=== PATIENT | female | born 1995 | race Caucasian/White ===

== ENCOUNTER → 2016-08-12 | Outpatient (CLI) | payer BC ==
[~2016-08-12] MED LIST: ACET325T96 PO; DOXY30TA PO; ONDA4TAB46 PO; PRENTAB26 PO
== END | disposition home or self-care (01) ==
LOC: C.LAB 17:05
PROVIDERS: ATTEND Obstetrics & Gynecology
DX: O46.90 Antepartum hemorrhage, unspecified, unspecified trimester (principal)

== ENCOUNTER → 2016-08-13 | Day surgery (SDC) | payer BC ==
[~2016-08-13] VITALS: Ht 170.2 cm; Wt 98.5 kg
[2016-08-13 16:09] VITALS: BP 122/75; PULSE 109; TEMP 36.7; O2SAT 98; Ht 170.2 cm; Wt 98.5 kg
== END | disposition home or self-care (01) ==
LOC: C.MTU 16:00
PROVIDERS: ATTEND Obstetrics & Gynecology
DX: Z31.82 Encounter for Rh incompatibility status (principal)

== ENCOUNTER → 2016-09-30 | Outpatient (CLI) | payer BC ==
[~2016-09-30] MED LIST changes: -DOXY30TA PO; -PRENTAB26 PO
== END | disposition home or self-care (01) ==
LOC: C.LABSPEC 14:49
PROVIDERS: ATTEND Obstetrics & Gynecology
DX: Z34.03 Encounter for supervision of normal first pregnancy, third trimester (principal)

== ENCOUNTER 2016-10-11 08:57 | Inpatient (IN) | payer BC ==
[~2016-10-11] VITALS: Ht 167.6 cm; Wt 102.0 kg
[2016-10-11] MEDS ORDERED: IV FLUIDS COMPLETED PRN (10:45)
[2016-10-11] MEDS ORDERED: LACTATED RINGER'S 1000ML 500 ML IV PRN ×2 (15:53→20:14)
[2016-10-11] MEDS ORDERED: OXYTOCIN 30 UNITS/500ML NSS IV PRN ×2 (16:00→22:45)
[2016-10-11] MEDS ORDERED: LACTATED RINGER'S 1000ML 1,000 ML IV PRN (16:54)
[2016-10-11] MEDS ORDERED: LACTATED RINGER'S 1000ML 1,000 ML IV SCH (16:54)
[2016-10-11 17:15] LABS: HEMATOCRIT 32.8 % (37-47); MEAN CELL VOLUME 80.6 fL (80-100); MEAN CORPUSCULAR HEMOGLOBIN 26.3 pg (25-34); MEAN CORPUSCULAR HGB CONC 32.6 g/dl (32-36); MEAN PLATELET VOLUME 10.2 fL (7.4-10.4); PLATELET COUNT 352 K/uL (130-400); RED BLOOD COUNT 4.07 M/uL (4.2-5.4); WHITE BLOOD COUNT 17.63 K/uL (4.8-10.8)
[2016-10-11 17:28] VITALS: Ht 167.6 cm; Wt 102.0 kg
[2016-10-11] MEDS ORDERED: BUPIVACAINE 0.25% 30 ML VIAL ONE (19:25)
[2016-10-11] MEDS ORDERED: EpHEDrine SULFATE INJ 50 MG/ML AMP ONE (19:25)
[2016-10-11] MEDS ORDERED: FENTANYL 2MCG/ML ROPIV 1.25MG/ML 100ML BAG EPI ONE (19:26)
[2016-10-11] MEDS ORDERED: FENTANYL CITRATE INJ 50 MCG/1 ML 2 ML VIAL ONE (19:26)
[2016-10-11] MEDS ORDERED: NALOXONE HCL INJ 1 MG in SODIUM CHLORIDE 0.9% 1000ML 1,000 ML IV PRN ×4 (20:14)
[2016-10-11] MEDS ORDERED: NALOXONE HCL INJ 0.4 MG/1 ML VIAL/CARP IV PRN (20:15)
[2016-10-11] MEDS ORDERED: ONDANSETRON INJ 2 MG/ML 2 ML VIAL IV PRN (20:15)
[2016-10-11] MEDS ORDERED: PROMETHAZINE HCL INJ 25 MG in SODIUM CHLORIDE 0.9% 50ML 50 ML IV PRN (20:15)
[2016-10-11] MEDS ORDERED: DiphenhydrAMINE HCL 50 MG/ML VIAL IV PRN (20:15)
[2016-10-11] MEDS ORDERED: NALBUPHINE HCL INJ 10 MG/ML AMP IV PRN (20:15)
[2016-10-11] MEDS ORDERED: EpHEDrine SULFATE INJ 50 MG/ML AMP IV PRN (20:15)
[2016-10-11] MEDS ORDERED: FENTANYL 2MCG/ML ROPIV 1.25MG/ML 100ML BAG EPI PRN (20:15)
[2016-10-11] MEDS ORDERED: ACETAMINOPHEN/CODEINE 300/30MG TAB PO PRN ×2 (22:45)
[2016-10-11] MEDS ORDERED: DIPHTHERIA/TETANUS/PERTUSSIS 0.5 ML SYR/VIAL IM. ONE (22:45)
[2016-10-11] MEDS ORDERED: OXYCODONE/ACETAMINOPHEN 5-325 TAB PO PRN (22:45)
[2016-10-11] MEDS ORDERED: ACETAMINOPHEN 325 MG TAB PO PRN (22:45)
[2016-10-11] MEDS ORDERED: BENZOCAINE 20% AER SPR 82.5 GM CAN EXT PRN (22:45)
[2016-10-11] MEDS ORDERED: SUPERCREAM 0.870 % 15GM JAR EXT PRN (22:45)
[2016-10-11] MEDS ORDERED: HYDROCORTISONE ACETATE 25 MG SUPP PR PRN (22:45)
[2016-10-11] MEDS ORDERED: LANOLIN OINT EXT PRN ×2 (22:45)
--- NOTE | 2016-10-11 23:06 | DELIVERY SUMMARY ---
DATE OF OPERATION: 10/11/2016 Ching is 1, para 0. Her course was complicated early on with hyperemesis gravidarum, hospitalized numerous times for IV fluid replacement, and she is treated with Zofran and diclegis Blood type is B negative. Rubella immune. Vaginal beta strep negative. She came in in labor, tino every 4-5 minutes, and cervix was about 4-5 on admission. She was observed. Cervix went to 6. She was declared as being in labor. She was augmented with IV Pitocin. Membranes ruptured surgically. She was about 7 cm. She requested and received epidural anesthesia. She obtained good pain relief. Following this, she was augmented with IV Pitocin, went to full dilatation, pushed out a live male infant via direct occiput anterior position over an intact perineum. Infant was suctioned through the mouth and the nose. Cord was clamped, cut by the father. Cord blood was taken with IV Pitocin running. Placenta was removed intact. The perineum was intact; however, she had 2 periurethral lacerations of labia minora. Both of these were infiltrated with local and sewn with continuous 3-0 chromic. Following this, vag examination was normal. There were no sponges in the vagina. Catheter was used to empty the bladder. Estimated blood loss was about 200 mL. 1- and 5-minute Apgars were 8 and 9 respectively. I attest to the content of the Intraoperative Record and any orders documented therein. Any exceptions are noted below. [facility]
--- NOTE | 2016-10-12 01:06 | Anesthesia Procedure Note ---
Anesthesia Epidural Removal Nt Date & Time Oct 12, 2016 at 01:06 Vital Signs Pain Intensity: 0.0 Notes Mental Status: alert / awake / arousable, participated in evaluation Nausea / Vomiting: adequately controlled Pain: adequately controlled Airway Patency, RR, SpO2: stable & adequate BP & HR: stable & adequate Hydration State: stable & adequate Neuraxial Anesthesia: was administered Anesthetic Complications: no major complications apparent, pt satisfied with anesthetic care Epidural: removed without complications, with tip intact
[2016-10-12 01:40] VITALS: BP_SYST 108; BP_SYST 109; BP_DIAS 63; BP_DIAS 70; PULSE 118; PULSE 98; TEMP 36.6; TEMP 36.7
[2016-10-12] MEDS: IBUPROFEN 600 MG TAB PO PRN ×3 (01:46→21:31)
[2016-10-12 05:15] VITALS: BP 108/70; PULSE 98; TEMP 36.7
[2016-10-12 05:46] LABS: HEMATOCRIT 27.6 % (37-47)
[2016-10-12] MEDS: FERROUS SULFATE 325 MG TAB PO SCH (07:25)
[2016-10-12] MEDS: PRENATAL VITAMIN TAB PO SCH (07:25)
[2016-10-12] MEDS: DOCUSATE SODIUM 100 MG CAP PO SCH ×2 (07:25→21:15)
[2016-10-12 08:00] VITALS: BP 112/66; PULSE 97; TEMP 37.2; O2SAT 99
[2016-10-12 11:30] VITALS: BP 112/65; PULSE 98; TEMP 36.7; O2SAT 98
--- NOTE | 2016-10-12 11:39 | Progress Note ---
Subjective Oct 12, 2016. Subjective conversation w/ patient Ambulation: ambulating normally Voiding: no voiding problems Passing Gas: Yes Diet Tolerance: Regular Diet Lochia: Small Feeding Type: Breast Feeding Review of Systems Constitutional: + fever Objective Vital Signs Date Time Temp Pulse Resp B/P Pulse Ox O2 Delivery O2 Flow Rate FiO2 10/12/16 08:00 Room Air 10/12/16 08:00 37.2 97 19 112/66 99 Room Air 10/12/16 05:15 36.7 98 18 108/70 Room Air 10/12/16 01:40 Room Air 10/12/16 01:40 36.6 118 20 109/63 Room Air Physical Exam General Appearance: WELL-APPEARING Abdomen: non tender Fundus: Firm, Non-Tender Extremities: no pedal edema, no calf tenderness Laboratory Results Last 24 Hours Test 10/11/16 17:06 10/12/16 05:10 White Blood Count 17.63 K/uL Red Blood Count 4.07 M/uL Hemoglobin 10.7 g/dL 9.2 g/dL Hematocrit 32.8 % 27.6 % Mean Corpuscular Volume 80.6 fL Mean Corpuscular Hemoglobin 26.3 pg Mean Corpuscular Hemoglobin Concent 32.6 g/dl RDW Standard Deviation 40.3 fL RDW Coefficient of Variation 13.9 % Platelet Count 352 K/uL Mean Platelet Volume 10.2 fL Nucleated RBC Absolute Count (auto) 0.02 K/uL Nucleated Red Blood Cells % 0.1 % Assessment and Plan Problem List Medical Problems: (1) Abdominal pain Status: Acute (2) Anemia Status: Acute (3) Hypomagnesemia Status: Acute (4) Vomiting Status: Acute Post- Day#: 1
[2016-10-12 16:08] VITALS: BP 112/65; PULSE 98; TEMP 36.7; O2SAT 98
[2016-10-12] MEDS ORDERED: BISACODYL 5 MG TABEC PO SCH (20:00)
[2016-10-12 21:20] VITALS: BP 122/87; PULSE 105; TEMP 36.4
[2016-10-13 00:25] VITALS: BP 129/74; PULSE 98; TEMP 36.7
[2016-10-13] MEDS ORDERED: BISACODYL 10 MG SUPP PR PRN (07:00)
[2016-10-13 07:10] VITALS: BP 112/74; PULSE 106; TEMP 36.9; O2SAT 99
--- NOTE | 2016-10-13 07:52 | Progress Note ---
Subjective Oct 13, 2016. Subjective conversation w/ patient Ambulation: ambulating normally Voiding: no voiding problems Passing Gas: Yes Diet Tolerance: Regular Diet Lochia: Small Feeding Type: Breast Feeding Review of Systems Constitutional: + fever Objective Vital Signs Date Time Temp Pulse Resp B/P Pulse Ox O2 Delivery O2 Flow Rate FiO2 10/13/16 07:10 36.9 106 18 112/74 99 Room Air 10/13/16 00:25 36.7 98 18 129/74 Room Air 10/13/16 00:25 Room Air 10/12/16 21:20 36.4 105 20 122/87 Room Air 10/12/16 16:08 36.7 98 18 112/65 98 Room Air 10/12/16 16:08 Room Air 10/12/16 11:30 36.7 98 18 112/65 98 Room Air 10/12/16 08:00 Room Air 10/12/16 08:00 37.2 97 19 112/66 99 Room Air Physical Exam General Appearance: WELL-APPEARING Abdomen: non tender Fundus: Firm, Non-Tender Extremities: no pedal edema, no calf tenderness Assessment and Plan Problem List Medical Problems: (1) Abdominal pain Status: Acute (2) Anemia Status: Acute (3) Hypomagnesemia Status: Acute (4) Vomiting Status: Acute Post- Day#: 2
--- NOTE | 2016-10-13 07:54 | Discharge Instructions ---
Discharge Instructions Date of Service Oct 13, 2016. Admission Reason for Admission: Possible Labor Term Discharge Discharge Diagnosis / Problem: labor Discharge Goals Goal(s): Routine recovery after delivery Activity Recommendations Activity Limitations: as noted below ACTIVITY RECOMMENDATIONS: * Gradual return to full activity over the next 2-3 weeks. * No lifting - nothing heavier than baby over the next 2-3 weeks. * Do not engage in vigorous exercise, sexual activity or sports until cleared by your physician. * Do not drive or operate any motorized equipment until cleared by your physician. * You may shower/bathe daily. DIET: Resume Previous Diet If Breast-feeding: * Increase caloric intake by 500 calories, eat 3 well balanced meals, 2 high protein snacks a day and drink 6-8 8oz. glasses of fluid per day. BREAST CARE: If you are not breast feeding: * Wear a supportive bra 24 hours a day for one to two weeks. * Avoid stimulating your breasts and nipples as much as possible during the first few weeks after delivery. * When taking a shower, have the warm water hit your back, not breasts. * When your breasts feel full, apply ice packs. Usually three to four times a day helps ease the discomfort. * Take a mild pain medication (Tylenol / Motrin) when you are uncomfortable. If breast feeding: * Use breast milk to lubricate nipples. Lansinoh cream may be used for sore nipples. You do not need to remove cream prior to breast feeding. If using a different brand of cream, check the label for directions regarding removal of cream prior to nursing. * Wear a supportive bra. * If having problems with breasts or breast feeding, call a cost consultant or your health care provider. OVER THE COUNTER MEDICATION: * For discomfort or pain, you may use Acetaminophen (Tylenol), Ibuprofen (Advil ), or Naproxen (Aleve) following the package directions. * For constipation you may use Colace following the package directions. SPECIAL CARE INSTRUCTIONS: * Vaginal rest (no tampons, douching, intercourse) until after doctor 's visit. * control as discussed with doctor. * Verbalizes understanding of car seat law as reviewed with patient nursing. * Car Seat hand-out given and reviewed with patient by nursing. * Shaken baby information reviewed with patient by nursing. Call you doctor if: * Temperature greater than or equal to 100.4 degrees F or 38.0 degrees C. Take your temperature twice daily for a week. * Bleeding becomes heavier than the heaviest part of your period - saturating a sanitary pad within an hour. * Passing large clots. * Bleeding has a foul smelling odor. * Signs and symptoms of phlebitis: leg pain, warm, red or swollen area on leg. * "Baby Blues" lasting longer than two weeks. ++ If you have had a and incision has increased pain, redness, swelling, presence of any drainage, or if the incision starts to open up. If you have any questions or concerns, call your health care practitioner at [phone]. FOLLOW-UP VISIT: Please call the office at to schedule a 6 week examination. . Current Hospital Diet Patient's current hospital diet: Regular Diet Discharge Diet Recommended Diet: Regular Diet Pending Studies Studies pending at discharge: no Medical Emergencies . Who to Call and When: Medical Emergencies: If at any time you feel your situation is an emergency, please call 911 immediately. . Non-Emergent Contact Non-Emergency issues call your: Log Peeler Call Non-Emergent contact if: temperature is above 100.5 . . "Provider Documentation" section prepared by Trae Rice. VTE Core Measure Inpt VTE Proph given/why not?: Treatment not indicated
[2016-10-13] MEDS: IBUPROFEN 600 MG TAB PO PRN (08:21)
[2016-10-13] MEDS: DOCUSATE SODIUM 100 MG CAP PO SCH (08:21)
[2016-10-13] MEDS: FERROUS SULFATE 325 MG TAB PO SCH (08:21)
[2016-10-13] MEDS: PRENATAL VITAMIN TAB PO SCH (08:21)
[2016-10-13 12:45] VITALS: BP_DIAS 74; PULSE 106; TEMP 36.9
--- NOTE | 2016-10-14 07:43 | EDITING REQUIRED CODING QUERY ---
CODING QUERY To promote full compliance with coding requirements relating to patient care, provider participation is requested in all cases of customer training specialist uncertainty. Please assist us with the question(s) below: Coding Question(s): Dr. Rice, The following diagnoses are listed in the Assessment/Plan section of the progress notes. Please indicate if these were current diagnoses that were treated during this admission: (1) Abdominal pain Status: Acute ( ) present and treated during this encounter x ) not present or treated during this encounter (2) Anemia Status: Acute ( ) present and treated during this encounter ( x ) not present or treated during this encounter (3) Hypomagnesemia Status: Acute ( ) present and treated during this encounter ( x ) not present or treated during this encounter (4) Vomiting Status: Acute ( ) present and treated during this encounter (x ) not present or treated during this encounter Physician's Response(s): Thank you for your time, JOSI Dong, SCALE AGENT
== END 2016-10-13 13:46 | disposition home or self-care (01) | DRG 775 ==
LOC: C.LD 08:57 → C.OPB 08:57 → C.LD 09:32 → C.OPB 09:54 → OBSVTOIN 16:56 → C.OBG 10-12 01:44
PROVIDERS: ADMIT Obstetrics & Gynecology; ATTEND Obstetrics & Gynecology
PROC: 10E0XZZ Delivery of Products of Conception, External Approach (ICD-10-PCS; principal; 2016-10-11)
PROC: 0UQMXZZ Repair Vulva, External Approach (ICD-10-PCS; principal; 2016-10-11)
DX: O21.0 Mild hyperemesis gravidarum (principal); O71.82 Other specified trauma to perineum and vulva; O99.62 Diseases of the digestive system complicating childbirth; K21.9 Gastro-esophageal reflux disease without esophagitis; O99.214 Obesity complicating childbirth; E66.9 Obesity, unspecified; Z68.36 Body mass index [BMI] 36.0-36.9, adult; Z37.0 Single live birth; Z3A.37 37 weeks gestation of pregnancy; Z23 Encounter for immunization

== ENCOUNTER → 2016-11-22 | Outpatient (CLI) | payer BC | END | disposition home or self-care (01) | LOC: C.PAPS 16:14 | PROVIDERS: ATTEND Obstetrics & Gynecology | DX: Z39.2 Encounter for routine postpartum follow-up (principal); R87.616 Satisfactory cervical smear but lacking transformation zone ==

== ENCOUNTER 2017-05-17 08:10 | Emergency (ER) | payer BC ==
[~2017-05-17] VITALS: Ht 170.2 cm; Wt 79.2 kg
[2017-05-17 08:20] VITALS: BP 130/80; TEMP 36.6; Ht 170.2 cm; Wt 79.2 kg
--- NOTE | 2017-05-17 08:34 | EMERGENCY ROOM VISIT NOTE ---
ED Visit Note First contact with patient: 08:26 CHIEF COMPLAINT: Left upper arm pain HISTORY OF PRESENT ILLNESS: This 22-year-old female patient presents to the emergency department ambulatory, 4 days after falling into a couch and injuring her left upper arm. The patient states she was walking when she tripped and fell, banging her distal left humerus against the couch. She states she has continued to experience a throbbing, deep pain which she rates 3/10. She states she has intermittently been taking ibuprofen for the discomfort, but continues to have pain at this time. She has not been taking any medications consistently. She has not been using ice or heat on the wound. She does report bruising. She has full range of motion of her shoulder and elbow. Patient states the symptoms are worse only with palpation. She does have a baby at home, and is currently breast-feeding. She states she has been using the arm as much as possible because of the baby. The patient denies any numbness, tingling, significant swelling, redness, or other concerning symptoms. REVIEW OF SYSTEMS: A 6 system review of systems was performed with positives and pertinent negatives listed in the history of present illness. All other systems were reviewed and are negative. ALLERGIES: None MEDICATIONS: None PMH: None SOCIAL HISTORY: Lives locally with family. She denies drug, alcohol, tobacco use. PHYSICAL EXAM: VITALS: Vitals are noted on the nurse's note and reviewed by myself. Vital signs stable. GENERAL: This is a 22-year-old white female, in no acute distress, nondiaphoretic, well-developed well-nourished. MUSCULOSKELETAL: There is no obvious swelling, ecchymosis, or tenderness of the shoulder or elbow.There is a contusion and tenderness on palpation of the distal humerus. The patient has full active and passive ROM of the shoulder and elbow. There is no tenderness of the clavicle. HEART/LUNGS: RRR, no murmurs, gallops, or rubs. The lungs are clear to auscultation RADIOLOGY: X-Ray Left Humerus: L HUMERUS MIN 2 VIEWS ROUTINE CLINICAL HISTORY: Distal humerus pain s/p fall. COMPARISON: None FINDINGS: No acute fracture of the left humerus is identified. Alignment of the left elbow and shoulder appears anatomic. IMPRESSION: No acute fracture of the left humerus. Electronically signed by: Eddie Townsend M.D. 05/17/2017 8:58 AM Dictated Date/Time: 05/17/2017 8:56 AM EMERGENCY DEPARTMENT COURSE: The patient was seen and evaluated as above. The patient would like to have an x-ray completed, so this was ordered and reviewed by myself and radiologist. X-Ray was negative. I suspect a contusion. I discussed this with the patient and discussed proper outpatient management. I did offer her an arm sling and she declines.The patient was discharged home in good condition. DIFFERENTIAL DIAGNOSIS: Fracture, contusion, strain, sprain, malignancy, and others DIAGNOSIS: Upper arm contusion Problem List Medical Problems: (1) Anal fissure Status: Chronic (2) History of sigmoidoscopy Status: Resolved Current/Historical Medications No Active Prescriptions or Reported Meds Allergies Coded Allergies: No Known Allergies (Unverified , 05/17/17) Vital Signs Date Time Temp Pulse Resp B/P (MAP) Pulse Ox O2 Delivery O2 Flow Rate FiO2 05/17/17 09:12 73 16 98 05/17/17 08:20 36.6 84 16 130/80 98 Room Air Departure Information Impression Primary Impression: Contusion of left upper arm, initial encounter Dispostion Home / Self-Care Condition GOOD Prescriptions No Active Prescriptions or Reported Meds Referrals No Doctor, Assigned (PCP) Patient Instructions ED Contusion Upper Ext, My [facility] Additional Instructions You were seen in the ED today for an upper arm contusion. As discussed, x-ray of the upper arm was negative for acute fracture. Ibuprofen(Motrin, Advil) may be used for fever or pain. Use 400-600mg every six hours as needed. Take with food. Avoid using more than 2400mg in a 24 hour period. Do not use 2400mg per day for more than three consecutive days without physician direction. Prolonged inappropriate use can lead to stomach upset or ulcers. (AND/OR) Acetaminophen(Tylenol) may be used for fever or pain. Use 1000mg every six hours as needed. Avoid using more than 4000mg in a 24 hour period. Warm compresses for 20 minutes at a time four times daily for 2-3 days. Rest and elevate your injury. You may wrap an brianna wrap around the arm for compression and comfort if this is helpful. Return to the ER immediately for any numbness, tingling, severe pain, extreme swelling in the extremity or as needed. Follow-up with your primary care physician in 2 to 3 days for a recheck of your current condition.
--- NOTE | 2017-05-17 09:00 | DIAGNOSTIC IMAGING REPORT ---
L HUMERUS MIN 2 VIEWS ROUTINE CLINICAL HISTORY: Distal humerus pain s/p fall. COMPARISON: None FINDINGS: No acute fracture of the left humerus is identified. Alignment of the left elbow and shoulder appears anatomic. IMPRESSION: No acute fracture of the left humerus. Electronically signed by: Eddie Townsend M.D. 05/17/2017 8:58 AM Dictated Date/Time: 05/17/2017 8:56 AM
[2017-05-17 09:12] VITALS: PULSE 73; O2SAT 98
== END 2017-05-17 09:13 | disposition home or self-care (01) ==
LOC: C.EDB 08:12
DX: S40.022A Contusion of left upper arm, initial encounter (principal); W01.0XXA Fall on same level from slipping, tripping and stumbling without subsequent striking against object, initial encounter; Y92.9 Unspecified place or not applicable

== ENCOUNTER → 2017-06-28 | Outpatient (CLI) | payer BC ==
[2017-07-07 00:31] LABS: CHLAMYDIA TRACH RNA*** NOT DETECTED (NOT DETECTED); GC (NEIS GONORRHOEAE)RNA** NOT DETECTED (NOT DETECTED)
== END | disposition home or self-care (01) ==
LOC: C.LABSPEC 14:24
PROVIDERS: ATTEND Obstetrics & Gynecology
DX: Z34.81 Encounter for supervision of other normal pregnancy, first trimester (principal)

== ENCOUNTER → 2017-09-10 | Outpatient (CLI) | payer BC ==
[2017-09-10 10:24] LABS: BASO % 0.1 %; BASO ABS # 0.01 K/uL (0-0.2); EOS % 0.9 %; EOS ABS # 0.09 K/uL (0-0.5); HEMOGLOBIN 13.7 g/dL (12.0-16.0); IG# 0.02 K/uL (0.00-0.02); LYMPH % 17.2 %; LYMPH ABS # 1.75 K/uL (1.2-3.4); MEAN CELL VOLUME 87.1 fL (80-100); MEAN CORPUSCULAR HEMOGLOBIN 30.6 pg (25-34); MEAN CORPUSCULAR HGB CONC 35.1 g/dl (32-36); MEAN PLATELET VOLUME 9.8 fL (7.4-10.4); MONO % 4.7 %; MONO ABS # 0.48 K/uL (0.11-0.59); NEUT % 76.9 %; NEUT ABS # 7.83 K/uL (1.4-6.5); PLATELET COUNT 315 K/uL (130-400); RED CELL DISTRIBUTION WIDTH CV 13.2 % (11.5-14.5); RED CELL DISTRIBUTION WIDTH SD 42.2 fL (36.4-46.3); WHITE BLOOD COUNT 10.18 K/uL (4.8-10.8)
== END | disposition home or self-care (01) ==
LOC: C.LAB 08:36
PROVIDERS: ATTEND Obstetrics & Gynecology
DX: Z34.82 Encounter for supervision of other normal pregnancy, second trimester (principal)